=== PATIENT | male | born 1980 | race Caucasian/White ===

== ENCOUNTER → 2017-08-09 | Outpatient (CLI) | payer OTHER ==
[~2017-08-09] MED LIST: ALPR1 PO; AMOCLA875 PO; BUPR75 PO; CEPH500 PO; DIPH50; FAMO20 PO; HYDACE5 PO; LORA10ER PO; METCAR500 PO; OXYACE5T PO; OXYC15ER PO; OXYC30 PO; OXYC5 PO; PENVK500 PO; RANI150 PO; RXAMOCLASU PO; RXOXYACE PO; RXPENVK250 PO; SULTRIDS PO
[2017-08-09 16:21] LABS: Specimen Source Penis
[2017-08-10 09:15] LABS: Source Penis
== END ==
LOC: LAB SHORT 16:18 → LAB EV 16:18
PROVIDERS: Physician Assistant
DX: Z72.51 High risk heterosexual behavior (principal)
CPT/HCPCS: 86592; 87070; 87205; 87491; 87591

== ENCOUNTER 2017-10-09 16:26 | Emergency (ER) | payer OTHER ==
[~2017-10-09] VITALS: Ht 172.7 cm; Wt 86.2 kg
[2017-10-09] MEDS ORDERED: CLIN300 PO (17:38)
[2017-10-09] MEDS ORDERED: NYST237S MT (17:41)
== END 2017-10-09 17:52 | disposition home or self-care (01) ==
LOC: ER 16:26
DX: K08.89 Other specified disorders of teeth and supporting structures (principal); M26.31 Crowding of fully erupted teeth; F17.200 Nicotine dependence, unspecified, uncomplicated; Z88.8 Allergy status to other drugs, medicaments and biological substances
CPT/HCPCS: 96372; 99283; J1885

== ENCOUNTER 2018-09-02 21:48 | Emergency (ER) | payer BC ==
[~2018-09-02] VITALS: Ht 172.7 cm; Wt 81.7 kg
[~2018-09-02 21:48] MED LIST changes: +CLIN300 PO; +NYST237S MT
[2018-09-02] MEDS ORDERED: Augmentin 875-1 EACH PO (22:53)
[2018-09-03] MEDS ORDERED: Neurontin 100100 MG PO (00:06)
== END 2018-09-03 01:06 | disposition home or self-care (01) ==
LOC: ER 21:48
DX: M50.121 Cervical disc disorder at C4-C5 level with radiculopathy (principal); M50.122 Cervical disc disorder at C5-C6 level with radiculopathy; K04.7 Periapical abscess without sinus; Z88.2 Allergy status to sulfonamides; Z88.8 Allergy status to other drugs, medicaments and biological substances; F17.200 Nicotine dependence, unspecified, uncomplicated
CPT/HCPCS: 72125; 99283-25

== ENCOUNTER 2018-09-15 21:24 | Emergency (ER) | payer BC ==
[~2018-09-15] VITALS: Ht 172.7 cm; Wt 81.7 kg
[~2018-09-15 21:24] MED LIST changes: +Augmentin 875-1 EACH PO; +Neurontin 100100 MG PO
== END 2018-09-15 23:20 | disposition home or self-care (01) ==
LOC: ER 21:24
DX: M25.512 Pain in left shoulder (principal); F17.200 Nicotine dependence, unspecified, uncomplicated; Z88.8 Allergy status to other drugs, medicaments and biological substances
CPT/HCPCS: 96372; 99283-25; J1200; J1885

== ENCOUNTER 2024-03-26 12:14 | Observation (INO) | payer OTHER ==
[~2024-03-26] VITALS: Ht 172.7 cm; Wt 77.1 kg
[2024-03-26 13:43] LABS: BASOPHILS ABSOLUTE AUTO 0.04 K/mm3 (0.00-0.23); BASOPHILS PERCENT AUTO 0 % (0-2); EOSINOPHILS ABSOLUTE AUTO 0.12 K/mm3 (0.00-0.68); EOSINOPHILS PERCENT AUTO 1 % (0-6); Hematocrit 41.8 % (37.0-53.0); Hemoglobin 14.2 g/dL (13.5-17.5); IMMATURE GRAN ABSOLUTE AUTO 0.04 K/mm3 (0.00-0.10); IMMATURE GRAN PERCENT AUTO 0 % (0-1); LYMPHOCYTES PERCENT AUTO 9 % (21-46); MONOCYTES ABSOLUTE AUTO 1.34 K/mm3 (0.16-1.47); MONOCYTES PERCENT AUTO 11 % (4-13); Mean Corpuscular HGB 30.7 pg (26.0-34.0); Mean Corpuscular Volume 90 fL (80-100); Mean Platelet Volume 9.9 fL (9.1-12.4); NEUTROPHILS ABSOLUTE AUTO 9.29 K/mm3 (1.96-9.15); NEUTROPHILS PERCENT AUTO 79 % (41-73); Platelet Count 203 K/mm3 (150-400); RDW Coefficient Variation 12.1 % (11.7-14.2); RDW Standard Deviation 40.1 fL (35.1-46.3); Red Blood Cell Count 4.63 M/mm3 (4.30-5.90); White Blood Cell Count 11.83 K/mm3 (4.00-11.30)
[2024-03-26 14:06] LABS: Albumin, Blood 3.5 g/dL (3.4-5.0); Albumin/Globulin Ratio 0.9 (0.8-1.8); Bilirubin, Total 0.7 mg/dL (0.1-1.0); Calcium, Blood 9.3 mg/dL (8.5-10.1); Globulin, Blood 3.7 g/dL (2.2-4.0); Potassium, Blood 3.6 mmol/L (3.5-5.5); Total Protein, Blood 7.2 g/dL (6.4-8.2)
[2024-03-26] MEDS ORDERED: Ketorolac Tromethamine 15mg Vial IV ONE (16:55)
[2024-03-26] MEDS ORDERED: NS 1,000 ML IV SCH (16:55)
[2024-03-26] MEDS ORDERED: TraMADol HCl 50 MG Tab PO PRN (19:15)
[2024-03-26] MEDS ORDERED: FLU VACC TS2024-25(6MOS UP)/PF 45 MCG/0.5 ML SYRINGE IM SCH (19:15)
[2024-03-26] MEDS ORDERED: Ketorolac Tromethamine 15mg Vial IV PRN (19:25)
[2024-03-26] MEDS ORDERED: Vancomycin HCL 2,000 MG in NS 500 ML IV ONE (19:30)
[2024-03-26] MEDS ORDERED: CeFAZolin Sodium 2,000 MG in NS 100 ML IV SCH (20:00)
[2024-03-26] MEDS ORDERED: Lactobacil 2-S.Thermo-Bifido 1 1 Cap PO SCH (21:00)
[2024-03-26 21:09] VITALS: BP 138/88
[2024-03-26] MEDS ORDERED: VRAYLAR1.5 MG PO (21:09)
[2024-03-26] MEDS ORDERED: AUVELITY ER 451 EACH PO (21:09)
[2024-03-26] MEDS ORDERED: REMERON1510 PO (21:10)
[2024-03-26] MEDS ORDERED: HYDHCL25 PO (21:10)
[2024-03-26] MEDS ORDERED: ATOMOXETINE HCL25 MG PO (21:11)
[2024-03-27] VITALS (14 sets, daily range): BP systolic 104–140; BP diastolic 70–96
[2024-03-27] MEDS ORDERED: Calcium Carbonate 500 MG Tab Chew PO PRN (02:00)
[2024-03-27] MEDS ORDERED: NS 250 ML IV PRN (02:10)
[2024-03-27] MEDS ORDERED: Acetaminophen 325 MG TABLET PO PRN (03:25)
[2024-03-27] MEDS ORDERED: OxyCODONE HCL 5 MG TAB PO PRN (03:25)
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
[2024-03-27] MEDS ORDERED: Vancomycin HCL 1,500 MG in NS 250 ML IV SCH (08:00)
[2024-03-27] MEDS ORDERED: Ketorolac Tromethamine 30mg Vial IV PRN (08:25)
[2024-03-27] MEDS ORDERED: Enoxaparin 40 MG/0.4 ML SYR SC SCH (09:00)
--- NOTE | 2024-03-27 10:10 | NUR ---
PT C/O OF CHEST TIGHTNESS, DR. CHATTERJEE AT BEDSIDE, DR. BOOGIE NOTIFIED, PER DR. CHATTERJEE, PAIN IS LESS AFTER CHANGING DRESSING
[2024-03-27] MEDS ORDERED: Lactated Ringer's 1,000 ML IV SCH (12:00)
[2024-03-27] MEDS ORDERED: Rocuronium Bromide 10 MG/ML 5ML Injection IV ONE (12:22)
[2024-03-27] MEDS ORDERED: propofoL 20 ML IV ONE (12:22)
[2024-03-27] MEDS ORDERED: Ondansetron HCl 2 MG / ML 2ML Vial ONE (12:22)
[2024-03-27] MEDS ORDERED: Metoclopramide HCl 5MG / ML 2ML Vial ONE (12:22)
[2024-03-27] MEDS ORDERED: Ketorolac Tromethamine 30mg Vial ONE (12:22)
[2024-03-27] MEDS ORDERED: Sugammadex Sodium 200 MG/2ML SDV (100 MG/ML) ONE (12:22)
[2024-03-27] MEDS ORDERED: FentaNYL Citrate 50 MCG/ML 5 ML Injection ONE (12:22)
[2024-03-27] MEDS ORDERED: HYDROmorphone HCl/Pf 1MG SYR ONE (17:01)
[2024-03-28 02:49] VITALS: BP 109/75
--- NOTE | 2024-03-28 06:20 | NUR ---
SHIFT SUMMARY PT IS ALERT AND ORIENTED TIMES 4. PT IS FULL CODE. TORADOL AND TRAMADOL FOR PAIN. PT WAS RECEPTIVE TO CARE AND POLITE TO STAFF. PT IV IN LEFT AC AND FLUSHES WELL. DRESSING CHANGED PER DR ORDER. BED IN LOW POSITION, RAILS TIMES 2, CALL LIGHT WITHIN REACH.
[2024-03-28 07:08] VITALS: BP 123/84
[2024-03-28 07:40] LABS: Vancomycin, Trough 11.9 ug/mL (5.0-10.0)
[2024-03-28] MEDS ORDERED: Vancomycin HCL 1,250 MG in NS 250 ML IV SCH (09:00)
[2024-03-28 16:09] VITALS: BP 130/93
[2024-03-28] MEDS ORDERED: IBUP400 PO (16:34)
[2024-03-28] MEDS ORDERED: LEVO750 PO (16:35)
[2024-03-28] MEDS ORDERED: VISBIOME 112.51 EACH PO (16:35)
--- NOTE | 2024-03-28 18:59 | NUR ---
DISCHARGE NOTE: WENT OVER DISCHARGE WITH PATIENT; PT VOICED UNDERSTANDING OF LEAVNING PRIOR TO FINAL CULTURE RESULTS AND PATIENT UNDERSTANDS RISK. PATIENT GOT ANTIBIOTICS PRIOR TO DISCHARGE. HE GOT HIMSELF DRESSED, IV WAS REMOVED, AND BELONGINGS COLLECTED. PATIENT WALKED OUT OF UNIT. NO SIGNS OR SYMPTOMS OF DISTRESS DURING DISCHARGE.
--- NOTE | 2024-03-29 14:21 | NUR ---
PATIENT CAME IN AND WAS INQUIRING ABOUT CULTURE RESULTS. RESULTS WERE AVAILABLE AND CONTACTED DR. BOOGIE AND REVIEWED RESULTS WITH HER OVER THE PHONE. PER DR. BOOGIE SHE STATES FOR THE PATIENT TO TAKE BACTRIM DS 1 TABLET TWICE DAILY FOR 10 DAYS AND TO STOP THE LEVAQUIN. PATIENT NOTIFIED OF THIS INFORMATION AND PER DR. BOOGIE TO CALL PRESCRIPTION INTO THE PHARMACY. CALLED [facility] AND CALLED IN ABOVE PRESCRIPTION TO [facility].
== END 2024-03-28 18:35 | disposition home or self-care (01) ==
LOC: ER 12:14 → MEDS 12:15 → ER 12:15 → MEDS 12:15
PROVIDERS: Nurse Practitioner Acute Care; Physician Assistant; ADMIT Student in an Organized Health Care Education/Training Program
DX: L02.213 Cutaneous abscess of chest wall (principal); L03.313 Cellulitis of chest wall; F15.10 Other stimulant abuse, uncomplicated; F17.220 Nicotine dependence, chewing tobacco, uncomplicated; Z88.8 Allergy status to other drugs, medicaments and biological substances
CPT/HCPCS: 10060; 36415; 71260; 76604; 80053; 80202; 85025; 87070; 87075; 87077; 87147; 87186; 87205; 96361-59; 96365-59; 96367-59; 96375-59; 99284-25; A9270; G0378; J0690; J1171; J1885; J2405; J2704; J2765; J3010; J3370; J7030; J7040; J7050; J7120; Q9967

== ENCOUNTER 2024-04-08 03:19 | Day surgery (SDC) | payer OTHER ==
[~2024-04-08 03:19] MED LIST changes: +ATOMOXETINE HCL25 MG PO; +AUVELITY ER 451 EACH PO; +HYDHCL25 PO; +IBUP400 PO; +LEVO750 PO; +REMERON1510 PO; +VISBIOME 112.51 EACH PO; +VRAYLAR1.5 MG PO
== END 2024-04-08 23:00 | disposition home or self-care (01) ==
LOC: WOUND 03:19
DX: J86.9 Pyothorax without fistula (principal); S21.202D Unspecified open wound of left back wall of thorax without penetration into thoracic cavity, subsequent encounter; Z87.891 Personal history of nicotine dependence; Z88.8 Allergy status to other drugs, medicaments and biological substances; X58.XXXD Exposure to other specified factors, subsequent encounter
CPT/HCPCS: A6213; G0463

== ENCOUNTER 2024-04-26 04:27 | Day surgery (SDC) | payer OTHER | END 2024-04-26 23:00 | disposition home or self-care (01) | LOC: WOUND 04:27 | DX: J86.9 Pyothorax without fistula (principal); S21.202D Unspecified open wound of left back wall of thorax without penetration into thoracic cavity, subsequent encounter; Z87.828 Personal history of other (healed) physical injury and trauma; X58.XXXD Exposure to other specified factors, subsequent encounter | CPT/HCPCS: G0463 ==